=== PATIENT | male | born 1990 | race Caucasian/White ===

== ENCOUNTER 2019-03-26 05:10 | Emergency (ER) | payer MEDICAID ==
[~2019-03-26] VITALS: Ht 188 cm; Wt 74.8 kg
[2019-03-26 05:20] VITALS: BP_SYST 127
[2019-03-26 05:54] VITALS: BP_SYST 125
== END 2019-03-26 05:54 ==
LOC: SED 05:10
DX: Z02.89 Encounter for other administrative examinations (principal); N18.9 Chronic kidney disease, unspecified
CPT/HCPCS: 99283